=== PATIENT | male | born 1985 | race Caucasian/White ===

== ENCOUNTER 2018-06-30 23:37 | Emergency (ER) | payer MEDICAID, SELFPAY ==
[2018-06-30 23:42] VITALS: BP 155/94; PULSE 103; RESP 18; TEMP 36.9; O2SAT 99
--- NOTE | 2018-06-30 23:53 | W.ED.GENAD ---
Discharge Plan Disposition Patient Disposition: HOME Condition: Stable Discharge Details Chief Complaint: Chest/Rib Clinical Impression: Contusion of rib on left side Primary Care Provider: Patsy Foss ED Provider: Manny Gamble Home Meds and New Rx's Prescriptions: No Action No Known Home Meds RF: 0 Discharge Instructions Instructions: Rib Contusion (ED) Additional Instructions: you can take 1000mg tylenol and 600mg ibuprofen every 6 hours for pain as needed Medical Decision Making 33 yo male states he slipped on his outdoor stairs and landed on left chest in mid axillary line. Did not hit his head or have loc. Has pain with palpation over the 3-4 ribs in mid axillary lines on the left. no crepitus or palpable deformity. Has clear lung sounds and no abdominal tenderness so doubt ptx or spleen injury. I offered an xray to eval for rib fx's but he declined as he decided the management would not change. He will return if he decids he wants an xray or if he worsens. He meets all criteria per [place] head ct and nexus to not image his head or c spine Differential Diagnosis rib contusion vs fracture HPI General Mode of arrival: ambulatory. Date/Time Provider Initiated Documentation: 06/30/18 23:48. Limitations to Documentation: no limitations. Information obtained by: patient. History of Present Illness 33 year old M presents to the emergency department with the chief complaint of left rib pain, described as moderate, with intensity rated at 5. Quality is described as aching, and is localized to the chest. Patient reports no radiation. Patient started experiencing this hour(s) (2) and it has been constant. No relieving factors improve symptom(s), No exacerbating factors reported . Patient notes no other symptoms.. Patient did receive the following treatments prior to arrival, NSAID Related Data Home Medications Medication Instructions Recorded Confirmed Unknown [No Known Home Meds] 06/30/18 06/30/18 Allergies Allergy/AdvReac Type Severity Reaction Status Date / Time No Known Allergies Allergy Unverified 06/30/18 23:48 General Stated Complaint: Chest/Rib MARY: 4 Review of Systems Review of Systems All systems reviewed & are unremarkable except as noted in HPI and below Constitutional Denies chills, Denies fever(s) and Denies weakness Cardiovascular Denies dyspnea Respiratory Denies cough and Denies dyspnea Gastrointestinal Denies abdominal pain, Denies nausea and Denies vomiting Musculoskeletal Denies joint swelling Integumentary/Breasts Denies rash Neurologic Denies weakness [facility] Social History Smoking and Tabacco status: Never Exam Const General: no acute distress Orientation: alert HENMT Head: normal to inspection Ears: external ears normal General nose exam: external nose normal Mouth: moist mucous membranes Eyes General: appearance normal, both eyes and all related structures Neck Neck: normal visual inspection Chest Chest: no crepitus Resp Effort & Inspection: normal respiratory effort and able to speak in complete sentences Cardio Rate: regular rate Skin General skin exam: no rashes or lesions noted Neuro General: alert and oriented x3 Extrem General: normal to inspection Psych Mental Status: mental status grossly normal Course Vital Signs Temperature 36.9 C 06/30/18 23:42 Pulse 103 H 06/30/18 23:42 Respiratory Rate 18 06/30/18 23:42 Blood Pressure 155/94 H 06/30/18 23:42 Pulse Oximetry 99 06/30/18 23:42 Temperature 36.9 C 06/30/18 23:42 Temperature Source Temporal Artery Scan 06/30/18 23:42 Pulse 103 H 06/30/18 23:42 Respiratory Rate 18 06/30/18 23:42 Respiratory Effort 06/30/18 23:46 Respiratory Depth Normal 06/30/18 23:46 Respiratory Pattern Normal 06/30/18 23:46 Blood Pressure 155/94 H 06/30/18 23:42 Pulse Oximetry 99 06/30/18 23:42 Oxygen Delivery Method Room Air 06/30/18 23:42 Oxygen Flow Rate 0 06/30/18 23:42 Pain Level 3 06/30/18 23:46 Comment 06/30/18 23:42
--- NOTE | 2018-06-30 23:56 | ED.GENADUL_ITS ---
Discharge Plan Disposition Patient Disposition: HOME Condition: Stable Discharge Details Chief Complaint: Chest/Rib Clinical Impression: Contusion of rib on left side Primary Care Provider: Patsy Foss ED Provider: Manny Gamble Home Meds and New Rx's Prescriptions: No Action No Known Home Meds RF: 0 Discharge Instructions Instructions: Rib Contusion (ED) Additional Instructions: you can take 1000mg tylenol and 600mg ibuprofen every 6 hours for pain as needed Medical Decision Making 33 yo male states he slipped on his outdoor stairs and landed on left chest in mid axillary line. Did not hit his head or have loc. Has pain with palpation over the 3-4 ribs in mid axillary lines on the left. no crepitus or palpable deformity. Has clear lung sounds and no abdominal tenderness so doubt ptx or spleen injury. I offered an xray to eval for rib fx's but he declined as he decided the management would not change. He will return if he decids he wants an xray or if he worsens. He meets all criteria per [place] head ct and nexus to not image his head or c spine Differential Diagnosis rib contusion vs fracture HPI General Mode of arrival: ambulatory . Date/Time Provider Initiated Documentation: 06/30/18 23:48 . Limitations to Documentation: no limitations . Information obtained by: patient . History of Present Illness 33 year old M presents to the emergency department with the chief complaint of left rib pain, described as moderate, with intensity rated at 5. Quality is described as aching, and is localized to the chest. Patient reports no radiation. Patient started experiencing this hour(s) (2) and it has been constant. No relieving factors improve symptom(s), No exacerbating factors reported . Patient notes no other symptoms.. Patient did receive the following treatments prior to arrival, NSAID Related Data Home Medications Medication Instructions Recorded Confirmed Unknown [No Known Home Meds] 06/30/18 06/30/18 Allergies Allergy/AdvReac Type Severity Reaction Status Date / Time No Known Allergies Allergy Unverified 06/30/18 23:48 General Stated Complaint: Chest/Rib MARY: 4 Review of Systems Review of Systems All systems reviewed & are unremarkable except as noted in HPI and below Constitutional Denies chills, Denies fever(s) and Denies weakness Cardiovascular Denies dyspnea Respiratory Denies cough and Denies dyspnea Gastrointestinal Denies abdominal pain, Denies nausea and Denies vomiting Musculoskeletal Denies joint swelling Integumentary/Breasts Denies rash Neurologic Denies weakness [facility] Social History Smoking and Tabacco status: Never Exam Const General: no acute distress Orientation: alert HENMT Head: normal to inspection Ears: external ears normal General nose exam: external nose normal Mouth: moist mucous membranes Eyes General: appearance normal, both eyes and all related structures Neck Neck: normal visual inspection Chest Chest: no crepitus Resp Effort & Inspection: normal respiratory effort and able to speak in complete sentences Cardio Rate: regular rate Skin General skin exam: no rashes or lesions noted Neuro General: alert and oriented x3 Extrem General: normal to inspection Psych Mental Status: mental status grossly normal Course Vital Signs Temperature 36.9 C 06/30/18 23:42 Pulse 103 H 06/30/18 23:42 Respiratory Rate 18 06/30/18 23:42 Blood Pressure 155/94 H 06/30/18 23:42 Pulse Oximetry 99 06/30/18 23:42 Temperature 36.9 C 06/30/18 23:42 Temperature Source Temporal Artery Scan 06/30/18 23:42 Pulse 103 H 06/30/18 23:42 Respiratory Rate 18 06/30/18 23:42 Respiratory Effort 06/30/18 23:46 Respiratory Depth Normal 06/30/18 23:46 Respiratory Pattern Normal 06/30/18 23:46 Blood Pressure 155/94 H 06/30/18 23:42 Pulse Oximetry 99 06/30/18 23:42 Oxygen Delivery Method Room Air 06/30/18 23:42 Oxygen Flow Rate 0 06/30/18 23:42 Pain Level 3 06/30/18 23:46 Comment 06/30/18 23:42
== END 2018-07-01 00:06 | disposition home or self-care (01) ==
PROVIDERS: Emergency Provider Emergency Medicine; PCP Internal Medicine
DX: S20.222A Contusion of left back wall of thorax, initial encounter (principal); W10.8XXA Fall (on) (from) other stairs and steps, initial encounter
CPT/HCPCS: 99282

== ENCOUNTER 2018-07-03 08:35 | Emergency (ER) | payer MEDICAID, SELFPAY ==
[2018-07-03 08:41] VITALS: BP 157/91; PULSE 85; RESP 20; TEMP 36.7; O2SAT 98
--- NOTE | 2018-07-03 09:03 | W.ED.GENAD ---
Discharge Plan Disposition Patient Disposition: HOME Condition: Stable Discharge Details Chief Complaint: Chest/Rib Clinical Impression: Rib fractures Primary Care Provider: Patsy Foss ED Provider: More Padilla Home Meds and New Rx's Prescriptions: No Action No Known Home Meds RF: 0 Discharge Instructions Instructions: Rib Fracture (ED) Additional Instructions: Apply ice to the affected area several times daily for 20 minutes at a time. Alternate Tylenol and Motrin as needed and directed for pain. Continue to use the incentive spirometer several times an hour to encourage deep breathing to prevent pneumonia. Follow-up with your primary care doctor in 1 week for reevaluation. Return immediately to the emergency department any worsening or new concerning symptoms of difficulty breathing, worsening pain or any other concerns. Discharge Data Discharge Date/Time-TO BE ENTERED AT DEPARTURE: 07/03/18 10:33 Discharge Physician: More Padilla Medical Decision Making 33-year-old male who presents with complaint of feeling a pop in his left ribs after throwing a strap over his truck today. Patient was seen here 2 days ago after a fall directly hitting his left lateral rib cage on a stair. He declined an x-ray at that time and was told he may have a rib fracture versus contusion. He denies any tenderness palpation or significant pain in his left ribs, he just wanted to be checked out due to the concern for feeling a pop. He mainly complains of pain with range of motion of his upper body. Blood pressure mildly hypertensive, otherwise vitals within normal limits, normal oxygen saturation respiratory rate. Lungs clear to auscultation. No crepitus. No step-off. Patient is agreeable and requesting x-rays at this time. 1015 -- Left rib and PA and lateral chest x-rays noted fourth/fifth/this rib fractures. No pneumothorax or pleural effusion. Patient is in no acute respiratory distress and appears comfortable and relaxed. He is declining any narcotic pain medication upon discharge. He was given an incentive spirometer. He is instructed to alternate Tylenol Motrin, apply ice, and to follow-up with his primary care doctor for reevaluation and to return here if worse. Medical Records Medical records reviewed: Yes I reviewed the patient's medical records. Imaging Data Radiologic Study: Radiologist's impression: LEFT RIBS AND PA AND LATERAL CHEST: No priors. Heart size and pulmonary vasculature are within normal limits. The lungs are clear. No effusion or pneumothorax is identified. There are nondisplaced fractures involving the posterolateral aspects of the left fourth and fifth ribs and a mildly displaced fracture involving the posterior lateral aspect of the left sixth rib. No other fractures are identified. IMPRESSION: Fractures involving the posterolateral aspects of the left fourth, fifth and sixth ribs. No pneumothorax or pleural effusion is seen. HPI General Mode of arrival: ambulatory. Date/Time Provider Initiated Documentation: 07/03/18 08:46. Limitations to Documentation: no limitations. Information obtained by: patient. HPI Narrative: Patient is a 33-year-old male who presents with left rib pain for the past 2 days after fall on ice. Patient states he was walking downstairs when he slipped on ice and fell hitting his left lateral chest on a stair. Patient states he was seen here 2 days ago for the same complaint and was told he may have a contusion or fracture of his ribs but he declined x-ray at that time. Patient states today he was throwing a strap over his truck and he felt a pop on the left side. He took 600 mg of ibuprofen prior to arrival. He denies any headache, neck pain, chest pain, shortness of breath or abdominal pain. Related Data Home Medications Medication Instructions Recorded Confirmed Unknown [No Known Home Meds] 06/30/18 07/03/18 Allergies Allergy/AdvReac Type Severity Reaction Status Date / Time No Known Allergies Allergy Unverified 07/03/18 08:43 General Stated Complaint: Chest/Rib MARY: 3 Review of Systems Review of Systems All systems reviewed & are unremarkable except as noted in HPI and below Constitutional Reports as per HPI, Denies chills and Denies fever(s) Eyes Denies blurry vision ENT Denies dizziness, Denies sore throat and Denies throat swelling Cardiovascular Denies chest pain and Denies dyspnea Respiratory Denies cough and Denies dyspnea Gastrointestinal Denies abdominal pain, Denies diarrhea and Denies vomiting Genitourinary Denies hematuria and Denies dysuria Musculoskeletal Denies back pain, Denies numbness and Reports other (L rib pain) Integumentary/Breasts Denies lesions and Denies rash Neurologic Denies dizziness, Denies focal weakness and Denies numbness Allergic/Immunologic Denies throat swelling [facility] Medical History No significant past medical history (Acute) Surgical History No significant past surgical history (Acute) Social History Smoking and Tabacco status: Never alcohol intake: current alcohol intake frequency: a few times a month substance use type: does not use Exam Const General: cooperative, healthy appearing and no acute distress HENMT Head: normal to inspection Face and sinus: normal facial exam Eyes General: appearance normal, both eyes and all related structures EOM: EOM intact bilaterally Neck Neck: normal visual inspection and No submandibular swelling Lymphatic: no lymphadenopathy noted Chest Chest: normal inspection of the chest, normal palpation of entire chest wall, no crepitus, no tenderness and other (Pain in L lateral chest with movement of upper body and b/l arms) Resp Effort & Inspection: normal respiratory effort and able to speak in complete sentences Auscultation: clear to auscultation bilaterally Cardio Rate: regular rate Rhythm: regular rhythm GI Inspection: normal to inspection and no abdominal wall ecchymosis Palpation: soft, not firm, not rigid and nontender Auscultation: normal bowel sounds Back/Spine/Pelvis Cervical Spine: No cervical spinal tenderness Thoracic/Lumbar Spine: thoracic and lumbar spine normal to inspection, No thoracic spinal tenderness and No lumbar spinal tenderness Skin General skin exam: no rashes or lesions noted Neuro General: alert, awake and oriented x3 Cognition: normal cognition Speech: speech normal Motor: muscle tone normal throughout Sensory Exam: no sensory deficits noted Extrem General: normal to inspection and full ROM Psych Appearance: grossly normal Mental Status: mental status grossly normal Speech and Movement: speech and movement normal Affect: normal affect Course Vital Signs Temperature 98.1 F 07/03/18 08:41 Pulse 85 07/03/18 08:41 Respiratory Rate 20 07/03/18 08:41 Blood Pressure 157/91 H 07/03/18 08:41 Pulse Oximetry 98 07/03/18 08:41 Temperature 98.1 F 07/03/18 08:41 Temperature Source Temporal Artery Scan 07/03/18 08:41 Pulse 85 07/03/18 08:41 Respiratory Rate 20 07/03/18 08:41 Respiratory Effort Non-Labored 07/03/18 08:44 Respiratory Depth Normal 07/03/18 08:44 Respiratory Pattern Normal 07/03/18 08:44 Blood Pressure 157/91 H 07/03/18 08:41 Blood Pressure Position Sitting 07/03/18 08:41 Pulse Oximetry 98 07/03/18 08:41 Oxygen Delivery Method Room Air 07/03/18 08:41 Oxygen Flow Rate 0 07/03/18 08:41 Pain Level 6 07/03/18 08:44
[2018-07-03 10:34] VITALS: BP 157/91; PULSE 85; RESP 20; TEMP 36.7; O2SAT 98
== END 2018-07-03 10:33 | disposition home or self-care (01) ==
PROVIDERS: Emergency Provider Physician Assistant; PCP Internal Medicine
DX: S22.42XA Multiple fractures of ribs, left side, initial encounter for closed fracture (principal); W00.1XXA Fall from stairs and steps due to ice and snow, initial encounter
CPT/HCPCS: 99283; 71046; 71100; 99282

== ENCOUNTER 2023-02-12 09:40 | Emergency (ER) | payer MEDICAID, SELFPAY ==
[2023-02-12 09:44] VITALS: BP 170/90; PULSE 82; RESP 20; TEMP 37.1; O2SAT 99
--- NOTE | 2023-02-12 10:09 | ED.GENADUL_ITS ---
Discharge Plan Disposition Patient Disposition: Home Discharge Details Clinical Impression: Acute Lyme disease with erythema migrans lesion 5 cm or greater in diameter Primary Care Provider: Unknown,Unknown ED Provider: Ming Graham Home Meds and New Rx's Prescriptions: New doxycycline hyclate 100 mg tablet 100 mg PO BID 21 Days Qty: 42 0RF Discharge Instructions Instructions: Lyme Disease (ED) Additional Instructions: Please take antibiotics as prescribed and for the full course of 21 days. If you have any new or significant worsening of symptoms return immediately to the emergency department for reassessment. If not improving in the next 1 to 2 weeks please follow-up with your primary care provider for reassessment and further testing as needed. You are still pending testing from your blood draw to test for other tickborne illnesses and we will contact you if any additional antibiotics are needed. Referrals: Primary Care Provider [Outside] - 2 weeks (As needed for reassessment or if not improving) Discharge Data Discharge Date/Time-TO BE ENTERED AT DEPARTURE: 02/12/23 10:53 Medical Decision Making Patient presenting to the emergency department for chief complaint of rash on his back with now having fever that is low-grade and multiple painful joints. P atient does state approximately 2 weeks ago he pulled off a tick and no symptoms for the first week but over the last week he has had worsening symptoms. Patient denies any other significant past medical history and otherwise is active and works outdoors. Physical exam shows large erythema migrans type rash to patient's lower back other joints involved do not show any swelling or erythema and vital signs are otherwise stable beyond some noted hypertension that patient states he is not diagnosed with. I am concerned for acute Lyme disease. Will send tickborne panel but regardless of results symptoms are consistent with this and will start patient on doxycycline for 21 days. After discussion of diagnosis and plan of care patient has no further needs, questions, or concerns and states clear understanding to return to the emergency department for any worsening symptoms. This documentation was generated using [employer]box[employer] system, please disregard any oddities of phrase or misspellings. HPI General Mode of arrival: ambulatory . Date/Time Provider Initiated Documentation: 02/12/23 09:55 . Limitations to Documentation: no limitations . Information obtained by: patient and RN notes reviewed . History of Present Illness 38 year old M presents to the emergency department with the chief complaint of Rash, body aches, fever, described as moderate, Patient started experiencing this week(s) (1) and it has been constant. No relieving factors improve symptom(s), Other factors that worsen symptoms (Tick bite 2 weeks ago) . Patient notes no other symptoms.. Patient did receive the following treatments prior to arrival, NSAID Related Data Home Medications Medication Instructions Recorded Confirmed doxycycline hyclate 100 mg tablet 100 mg PO BID 21 days #42 tabs 02/12/23 Previous Rx's Medication Instructions Recorded doxycycline hyclate 100 mg tablet 100 mg PO BID 21 days #42 tabs 02/12/23 Allergies Allergy/AdvReac Type Severity Reaction Status Date / Time No Known Allergies Allergy Unverified 02/12/23 09:48 General Stated Complaint: RashLesion MARY: 4 Review of Systems Constitutional Constitutional: Denies body ache(s), Reports chills, Reports fever(s), Denies headache(s) and Reports malaise ENT Ears, Nose, Mouth, and Throat: Denies headache(s) Cardiovascular Cardiovascular: Denies chest pain Musculoskeletal Musculoskeletal: Reports myalgias, Denies arthralgias, Denies joint swelling, Denies muscle weakness, Denies numbness and Denies tingling Integumentary/Breasts Skin/Breast: Reports as per HPI, Denies erythema and Reports rash Neurologic Neurologic: Denies headache(s), Denies numbness, Denies tingling and Denies paresthesias PFSH All Active Problems Acute Lyme disease with erythema migrans lesion 5 cm or greater in diameter (Acute) Medical History No significant past medical history Surgical History No significant past surgical history Social History Smoking/Tobacco Use Status: Never Smoking risk assessment performed?: Yes Alcohol Intake: current Alcohol Intake frequency: a few times a month Drug use: Never Substance use type: does not use Do you feel safe in your relationship?: Yes Exam Const General: cooperative, comfortable and no acute distress Orientation: alert, awake and oriented x3 HENMT Mouth: moist mucous membranes Resp Effort & Inspection: normal respiratory effort and able to speak in complete sentences Cardio Rate: regular rate Rhythm: regular rhythm Heart Sounds: S1 normal and S2 normal Skin General skin exam: no fluctuance, no induration and other Rashes: rashes noted macules posterior back Neuro General: patient alert, patient awake and patient oriented x3 Sensory Exam: no sensory deficits noted Course Vital Signs Vital signs: Vital Signs Temperature 37.1 C 02/12/23 09:44 Pulse 82 02/12/23 09:44 Respiratory Rate 20 02/12/23 09:44 Blood Pressure 170/90 H 02/12/23 09:44 Pulse Oximetry 99 02/12/23 09:44 Temperature 37.1 C 02/12/23 09:44 Pulse 82 02/12/23 09:44 Respiratory Rate 20 02/12/23 09:44 Respiratory Effort Normal 02/12/23 09:49 Blood Pressure 170/90 H 02/12/23 09:44 Blood Pressure Position Sitting 02/12/23 09:44 Pulse Oximetry 99 02/12/23 09:44 Oxygen Delivery Method Room Air 02/12/23 09:44 Oxygen Flow Rate 0 02/12/23 09:44 Pain Level 5 02/12/23 09:44
[2023-02-12] MEDS: Doxycycline Hyclate 100 MG CAP PO (10:43)
[2023-02-13 12:38] LABS: Lyme Ab w Rflx to Lyme Confirm Positive (Negative)
[2023-02-14 11:24] LABS: Lyme IgG Ab Positive (Negative); Lyme IgM Ab Positive (Negative)
[2023-02-14 14:53] LABS: Anaplasma phagocytophilum Negative (Negative); B. miyamotoi PCR Negative (Negative); Babesia divergens/MO-1 Negative (Negative); Babesia duncani Negative (Negative); Babesia microti Negative (Negative); Ehrlichia chaffeensis Negative (Negative); Ehrlichia ewingii/canis Negative (Negative); Ehrlichia muris eauclairensis Negative (Negative)
== END 2023-02-12 10:53 | disposition home or self-care (01) ==
PROVIDERS: Emergency Provider Nurse Practitioner Family
DX: A69.20 Lyme disease, unspecified; A26.0 Cutaneous erysipeloid
CPT/HCPCS: 36415; 86617; 87798; 99283; 86618; 99284

== ENCOUNTER 2023-07-26 05:00 | Outpatient (CLI) | payer BC, SELFPAY ==
[2023-07-26 07:55] LABS: Abs Immature Grans 0.03 10^3/uL (0.0-0.06); Absolute Basophil Count 0.06 10^3/uL (0.0-0.2); Absolute Eosinophil Count 0.11 10^3/uL (0.0-0.7); Absolute Monocyte Count 0.59 10^3/uL (0.1-0.8); Absolute Neutrophil Count 3.61 10^3/uL (1.2-6.7); Basophils % 0.9; Eosinophils % 1.6; HCT 50.3 % (40.0-50.0); Immature Grans % 0.4; Lymphocytes % 34.3; MCH 29.5 pg (27.0-33.0); MCHC 33.8 % (32.0-36.0); MCV 87 fL (80-95); MPV 9.3 fL (8.0-11.0); Monocytes % 8.8; Platelet Count 235 10^3/uL (130-400); RBC 5.77 10^6/uL (4.36-5.78); RDW 13.2 % (11.8-14.1); RDW-SD 41.9 fL
[2023-07-26 08:18] LABS: ALT 45 U/L (16-63); AST 21 U/L (15-37); Albumin 4.3 g/dL (3.4-5.0); Alkaline Phosphatase 86 U/L (46-116); BUN 16 mg/dL (7-18); Bilirubin, Total 0.6 mg/dL (0.2-1.0); Calcium 9.2 mg/dL (8.5-10.1); Calculated LDL 200 mg/dL (<100); Chloride 105 mmol/L (98-107); Cholesterol 287 mg/dL (<200); Glucose 116 mg/dL (74-106); HDL Cholesterol 42 mg/dL (40-60); Potassium 4.4 mmol/L (3.5-5.1); Sodium 144 mmol/L (136-145); Total Protein 7.9 g/dL (6.4-8.2); Triglyceride 229 mg/dL (<150)
[2023-07-27 09:57] LABS: Lyme Ab w Rflx to Lyme Confirm Positive (Negative)
[2023-07-27 11:41] LABS: Lyme IgG Ab Positive (Negative); Lyme IgM Ab Positive (Negative)
== END 2023-07-26 05:01 | disposition home or self-care (01) ==
LOC: LBO 05:00
PROVIDERS: Absent Provider Nurse Practitioner; PCP Nurse Practitioner; Visit Provider Nurse Practitioner
DX: Z13.220 Encounter for screening for lipoid disorders (principal); Z86.19 Personal history of other infectious and parasitic diseases; I10 Essential (primary) hypertension; J45.909 Unspecified asthma, uncomplicated
CPT/HCPCS: 36415; 80053; 80061; 86617; 85025; 86618

== ENCOUNTER 2024-01-08 04:28 | Outpatient (CLI) | payer BC, SELFPAY ==
[2024-01-08 07:35] LABS: Calculated LDL 149 mg/dL (<100); Cholesterol 247 mg/dL (<200); HDL Cholesterol 39 mg/dL (40-60); Triglyceride 296 mg/dL (<150)
== END 2024-01-08 04:29 | disposition home or self-care (01) ==
LOC: LBO 04:29
PROVIDERS: PCP Nurse Practitioner; Referring Provider Nurse Practitioner; Visit Provider Nurse Practitioner
DX: E78.5 Hyperlipidemia, unspecified (principal)
CPT/HCPCS: 36415; 80061